=== PATIENT | female | born 1990 | race Caucasian/White ===

== ENCOUNTER 2019-01-26 01:46 | Emergency (ER) | payer OTHER ==
[2019-01-26] MEDS: LORAZEPAM 2 MG INJ IV (02:23)
[2019-01-26] MEDS: LORAZEPAM 2 MG INJ IM (03:47)
== END 2019-01-26 04:30 | disposition home or self-care (01) ==
LOC: E/R 01:46
DX: R55 Syncope and collapse (principal)
CPT/HCPCS: 96372; 96374; 99284-25; J2060